=== PATIENT | male | born 1995 | race Hispanic/Latino ===

== ENCOUNTER 2017-11-19 01:17 | Emergency (ER) | payer BC ==
[2017-11-19 01:27] VITALS: RESP 16; TEMP 98.9; O2SAT 100
[2017-11-19 02:30] LABS: BLOOD UREA NITROGEN 16 mg/dl (9-20); GFR AFRICAN-AMERICAN > 60; GFR NON-AFRICAN AMERICAN > 60
[2017-11-19 02:44] LABS: BASO % 0.4 % (0.0-2.0); EOS # 0.1 K/uL (0.0-0.7); EOS % 2.8 % (0.0-4.0); HEMOGLOBIN 14.6 g/dL (12.0-18.0); LYMPH # 0.7 K/uL (1.0-4.3); LYMPH % 18.8 % (20.0-40.0); MEAN CELL VOLUME 84.6 fl (80.0-94.0); MEAN CORPUSCULAR HEMOGLOBIN 28.8 pg (27.0-31.0); MEAN CORPUSCULAR HGB CONC 34.1 g/dL (33.0-37.0); MEAN PLATELET VOLUME 8.1 fl (7.2-11.7); MONO # 0.5 K/uL (0.0-0.8); MONO % 13.8 % (0.0-10.0); NEUT # 2.5 K/uL (1.8-7.0); NEUT % 64.2 % (50.0-75.0); NRBC % 0.2 % (0.0-0.0); RBC 5.05 Mil/uL (4.40-5.90); RED CELL DISTRIBUTION WIDTH 13.4 % (11.5-14.5)
[2017-11-19 03:22] LABS: URINE BILIRUBIN SMALL (NEGATIVE); URINE BLOOD NEGATIVE (NEGATIVE); URINE CLARITY SLIGHTY-CLOUDY (Clear); URINE COLOR AMBER (YELLOW); URINE GLUCOSE (UA) NEG (Normal); URINE LEUKOCYTE ESTERASE NEG Leu/uL (Negative); URINE PROTEIN 30 mg/dL (NEGATIVE); URINE UROBILINOGEN 0.2-1.0 mg/dL (0.2-1.0)
--- NOTE | 2017-11-19 03:24 | ED PDOC ---
HPI: Male Pain Time Seen by Provider: 11/19/17 01:33 Chief Complaint (Nursing): Male Genitourinary Chief Complaint (Provider): right-side testicular pain History Per: Patient History/Exam Limitations: no limitations Onset/Duration Of Symptoms: Hrs (7) Current Symptoms Are (Timing): Still Present Quality Of Discomfort: "Pain" Associated Symptoms: denies: Nausea, Vomiting, Diarrhea Alleviating Factors: Rest Additional Complaint(s): 22 y/o male presents to the ED complaining of right-side testicular pain onset 7hrs prior to arrival. He feels pain with movements and relief with rest. Reports he is afraid he will develop a testicular torsion and reports of flu-like symptoms. Denies nausea, vomiting, or diarrhea. PMD: Provider TBD Past Medical History Reviewed: Historical Data, Nursing Documentation, Vital Signs Vital Signs: Last Vital Signs Temp 98.9 F 11/19/17 01:26 Pulse 69 11/19/17 01:26 Resp 16 11/19/17 01:26 BP 99/60 L 11/19/17 01:26 Pulse Ox 100 11/19/17 01:26 - Medical History PMH: No Chronic Diseases - Family History Family History: States: Unknown Family Hx - Allergies Allergies/Adverse Reactions: Allergies Allergy/AdvReac Type Severity Reaction Status Date / Time Cephalosporins Allergy RASH Verified 11/19/17 01:25 Review of Systems ROS Statement: Except As Marked, All Systems Reviewed And Found Negative Gastrointestinal: Negative for: Nausea, Vomiting, Diarrhea Genitourinary Male: Positive for: Other (right-side testicular pain ) Physical Exam - Reviewed Nursing Documentation Reviewed: Yes Vital Signs Reviewed: Yes - Physical Exam Appears: Positive for: Well, Non-toxic, No Acute Distress Head Exam: Positive for: ATRAUMATIC, NORMAL INSPECTION, NORMOCEPHALIC Skin: Positive for: Normal Color, Warm, Dry Eye Exam: Positive for: EOMI, Normal appearance, PERRL ENT: Positive for: Normal ENT Inspection Neck: Positive for: Normal, Painless ROM, Supple. Negative for: Decreased ROM, Limited ROM Cardiovascular/Chest: Positive for: Regular Rate, Rhythm. Negative for: Murmur Respiratory: Positive for: Normal Breath Sounds. Negative for: Decreased Breath Sounds, Accessory Muscle Use, Respiratory Distress Gastrointestinal/Abdominal: Positive for: Normal Exam, Bowel Sounds, Soft. Negative for: Tenderness, Guarding, Rebound Male Genital Exam: Positive for: testicular tenderness (R) (uncircumcised; bilateral cremasteric reflex are intact) Back: Positive for: Normal Inspection. Negative for: L CVA Tenderness, R CVA Tenderness Extremity: Positive for: Normal ROM. Negative for: Tenderness, Pedal Edema, Deformity Neurologic/Psych: Positive for: Alert, Oriented (x3), Gait - Laboratory Results Result Diagrams: 11/19/17 02:19 11/19/17 02:19 - ECG O2 Sat by Pulse Oximetry: 100 (RA) Pulse Ox Interpretation: Normal Medical Decision Making Medical Decision Making: Time: 01:41 Initial Impression: 22 y/o male with Testicular pain Initial Plan: --BMP --BETA-HCG, Quantitative --CBC --Urinalysis --Tests Duplex Complete [US] --Reevaluation Time: 04:15 EXAM: US Scrotum EXAM DATE/TIME: 11/19/2017 1:41 AM CLINICAL HISTORY: 22 years old, male; Pain; Scrotum pain; Additional info: Possible torsion TECHNIQUE: Real-time ultrasound of the scrotum with color Doppler and image documentation. COMPARISON: No relevant prior studies available. FINDINGS: Right testicle: Within normal limits in appearance. Measures 6.1 x 2.4 x 3.9 cm. Flow seen in the right testicle on color and Doppler imaging, with no evidence of torsion. Right epididymis: Demonstrates a tiny cyst, measuring approximately 4 mm. Otherwise within normal limits in appearance. Head measures 1.4 x 1.0 x 1.1 cm. Left testicle: Contains a tiny 2 mm rounded, anechoic lesion, most compatible with a simple intratesticular cyst. This is located in the mid to lower lower pole of the left testis. No solid masses visualized. Otherwise within normal limits in appearance. Measures 5.3 x 2.5 x 4.1 cm. Flow seen in the left testicle on color and Doppler imaging, with no evidence of torsion. Left epididymis: Contains a 1.6 x 1.4 cm simple-appearing cyst. Otherwise within normal limits in appearance. Head measures 2 x 1.8 cm. Hydrocoele: None seen. Varicocele: None seen. IMPRESSION: No evidence of testicular torsion or other significant acute abnormality. 1.6 cm left epididymal cyst. Tiny left intratesticular cyst. Tiny right epididymal cyst. See above for remaining findings. Time: 04:21 Patient's with flu-like symptoms may represent viral orchitis which was explained to him. He was advised to elevate and ice for his testicular pain. Clinical Impression: Testicular Pain Upon provider evaluation patient is medically stable, and requires no further treatment in the ED at this time. Patient will be discharged. Counseling was provided and all questions were answered regarding diagnosis and need for follow up with PMD. There is agreement to discharge plan. Return if symptoms persist or worsen. Documented by Miranda Crain acting as a scribe for Boni Fuentes MD. All medical record entries made by the Scribe were at my direction and personally dictated by me. I have reviewed the chart and agree that the record accurately reflects my personal performance of the history, physical exam, medical decision making, and the department course for this patient. I have also personally directed, reviewed, and agree with the discharge instructions and disposition. Disposition - Clinical Impression Clinical Impression: Testicular pain - Patient ED Disposition Is Patient to be Admitted: No - Disposition Disposition: Routine/Home Disposition Time: 04:21 Condition: STABLE Forms: [employer] ([place])
--- NOTE | 2017-11-19 04:07 | US ---
EXAM: US Scrotum EXAM DATE/TIME: 11/19/2017 1:41 AM CLINICAL HISTORY: 22 years old, male; Pain; Scrotum pain; Additional info: Possible torsion TECHNIQUE: Real-time ultrasound of the scrotum with color Doppler and image documentation. COMPARISON: No relevant prior studies available. FINDINGS: Right testicle: Within normal limits in appearance. Measures 6.1 x 2.4 x 3.9 cm. Flow seen in the right testicle on color and Doppler imaging, with no evidence of torsion. Right epididymis: Demonstrates a tiny cyst, measuring approximately 4 mm. Otherwise within normal limits in appearance. Head measures 1.4 x 1.0 x 1.1 cm. Left testicle: Contains a tiny 2 mm rounded, anechoic lesion, most compatible with a simple intratesticular cyst. This is located in the mid to lower lower pole of the left testis. No solid masses visualized. Otherwise within normal limits in appearance. Measures 5.3 x 2.5 x 4.1 cm. Flow seen in the left testicle on color and Doppler imaging, with no evidence of torsion. Left epididymis: Contains a 1.6 x 1.4 cm simple-appearing cyst. Otherwise within normal limits in appearance. Head measures 2 x 1.8 cm. Hydrocoele: None seen. Varicocele: None seen. IMPRESSION: No evidence of testicular torsion or other significant acute abnormality. 1.6 cm left epididymal cyst. Tiny left intratesticular cyst. Tiny right epididymal cyst. See above for remaining findings.
[2017-11-19 04:46] VITALS: BP 110/69; PULSE 73
== END 2017-11-19 04:32 | disposition home or self-care (01) ==
LOC: H.ER 01:17
DX: N50.3 Cyst of epididymis (principal); N50.82 Scrotal pain